=== PATIENT | female | born 1940 | race Caucasian/White ===

== ENCOUNTER 2017-01-25 04:55 | Inpatient (IN) | payer BC ==
[2017-01-19 16:26] LABS: BASOPHILS 0.2 %; BASOPHILS ABSOLUTE 0.01 10/3/uL (0.0-0.16); EOSINOPHILS 1.1 %; EOSINOPHILS ABSOLUTE 0.06 10/3/uL (0.0-0.53); HEMATOCRIT 36.5 % (36.0-48.0); HEMOGLOBIN 12.2 g/dL (12.0-16.0); LYMPHOCYTES ABSOLUTE 1.51 10/3/uL (0.67-4.30); MEAN CORPUS HGB CONC 33.4 g/dL (32.0-36.0); MEAN CORPUSCULAR HEMOGLOB 32.4 pg (26.0-34.0); MEAN CORPUSCULAR VOLUME 97.1 fL (80-100); MEAN PLATELET VOLUME 8.9 fL (9.2-13.0); MONOCYTES 5.5 %; MONOCYTES ABSOLUTE 0.31 10/3/uL (0.21-1.20); NEUTROPHILS 66.2 %; NEUTROPHILS ABSOLUTE 3.71 10/3/uL (2.02-8.40); PLATELET COUNT 202 10/3/uL (150-400); RBC DISTRIBUTION WIDTH 12.7 % (12.0-16.0); RED CELL COUNT 3.76 10/6/uL (4.0-5.6); WHITE BLOOD CELLS 5.6 10/3/uL (4.5-10.5)
[2017-01-19 16:27] LABS: MANUAL DIFF NO %
[2017-01-19 16:39] LABS: PROTIME (NOT ORD) 13.1 SEC (12.0-14.5)
[2017-01-19 16:42] LABS: BUN (BLOOD UREA NITROGEN) 20 MG/DL (6-23); CALCIUM, SERUM 8.7 MG/DL (8.5-10.4); CHLORIDE, SERUM 108 MMOL/L (96-112); CO2 (CARBON DIOXIDE) 30 MMOL/L (24-34); CREATININE 1.17 MG/DL (0.55-1.02); GFR AFRICAN AMERICAN 52 ML/MIN (>=60); GFR NON AFRICAN AMERICAN 45 ML/MIN (>=60); SODIUM, SERUM 145 MMOL/L (135-148)
[2017-01-19 16:43] LABS: GLUCOSE, SERUM 113 MG/DL (60-99)
[2017-01-19 16:44] LABS: ASCORBIC ACID (UR NOT ORDER) NEG (NEG); BILIRUBIN, URINE NEGATIVE (NEG); KETONE, URINE NEGATIVE (NEG); LEUKOCYTE ESTERASE(NOT OR TRACE (NEG); WBC (NOT ORDERED) (RFLEX) 2 (0-5)
--- NOTE | ~2017-01-25 | OP ---
Record Of Operation [facility] [address] [place]. [address] NAME: ROSE VIZCAINO : 36 STATUS : ADM IN PAT#: [id number] AGE: 76 ADM/REG DATE : 01/25/17 MR#: [id number] REPORT SERV DATE: 01/26/17 DICTATED BY: VIKASH BRUNNER DATE: 01/25/17 REPORT STATUS : Draft TRANSCRIBED BY: MODL DATE: 01/25/17 DATE OF PROCEDURE: 01/25/2017 SURGEON: Vikash Brunner MD OPERATIVE CLINICAL MATERIAL HANDLER: CRISTY Gomez COMPLICATIONS: None. ESTIMATED BLOOD LOSS: Less than 50 mL. DISPOSITION: Stable to recovery room. ANESTHESIA: General with interscalene block augmentation for postoperative pain control. PREOPERATIVE DIAGNOSES: 1. Right shoulder pain. 2. End-stage glenohumeral joint osteoarthritis. POSTOPERATIVE DIAGNOSIS: 1. Right shoulder pain. 2. End-stage glenohumeral joint osteoarthritis. OPERATIVE PROCEDURE: 1. Right shoulder examination under anesthesia. 2. Right total shoulder arthroplasty using Biomet comprehensive total shoulder system. IMPLANTS USED: A 4 mm medium glenoid component with Regenerex post, a 10 x 83 mm mini humeral stem, a 46 x 18 mm modular head with a B offset with a standard taper adapter. OPERATIVE PROCEDURE: The diagnoses listed above as well as the recommended surgical procedure and risks and benefits thereof were discussed in full detail with Rose Vizcaino and family on the morning of 01/25/2017. The patient and family asked appropriate questions which were answered to their satisfaction. An informed consent was signed, witnessed, and place in the chart. The right upper extremity was marked for confirmation and an interscalene block was placed by the anesthesia team with good success. The patient was then wheeled to the operative arena where general endotracheal anesthesia was administered. The patient was placed in the beachchair position with all nonoperative extremities and head well padded and secured for the duration of the case. The patient received pre-operative antibiotics. A surgical pause was performed confirming both the correct patient as well as the proper surgical site and procedure. All present were in agreement. All standard anatomical landmarks as well as deltopectoral incision site were demarcated using a sterile marking pin. A 10-blade was used to create an 8 cm curvilinear incision just lateral to the coracoid process and directed towards the lateral insertion of the deltoid. The soft tissues were dissected down sharply to expose the deltopectoral fascia. Record Of Operation [facility] [address] [place]. [id number] NAME: ROSE VIZCAINO : 38 STATUS : ADM IN PAT#: [id number] AGE: 76 ADM/REG DATE : 01/25/17 MR#: [id number] REPORT SERV DATE: 01/26/17 DICTATED BY: VIKASH BRUNNER DATE: 01/25/17 REPORT STATUS : Draft TRANSCRIBED BY: JESSIE DATE: 01/25/17 The cephalic vein and the fat stripe were identified. The vein was retracted medially using careful sharp dissection. Next, a [place] retractor was placed retracting the deltoid laterally and the pectoralis and coracobrachialis medially. The deltopectoral interval was the further exposed and the clavipectoral fascia was identified. Electrocautery was used to split the clavipectoral fascia exposing the anterior surface of the subscapularis. The lesser tuberosity was identified and the subscapularis was released 1 cm medial to the lesser tuberosity. The subscapularis was then tagged using Fiber Wire suture for later repair. The biceps tendon was then released and tagged as well for later tenodesis. The glenohumeral joint was then dislocated and the humeral head was brought out the operative wound very carefully. All osteophytes were then removed using a rongeur. Our starting awl was used with increasing sizes of diaphyseal reamers to obtain the best fit with excellent cortical chatter. The intramedullary cutting jig was then assembled and set with the appropriate version to meet the patient's normal anatomy. An oscillating saw was then used to make our proximal humeral cut. The proximal humeral portion of the head was then taken to the back table and measured and matched up with our trial implants. Next, the broaches were used in increasing sizes up to the size which fit most perfectly. The head protector was placed and the proximal humerus was retracted posteriorly and inferiorly out of the way of the glenoid. The labrum was then excised in full using electrocautery. All additional osteophytes and osteochondral loose bodies were removed. Next, the glenoid reamers were used to ream the glenoid down to a healthy bleeding bone surface. Our central peg hole was then drilled and our peg guide was used to drill the subsequent three peg holes. A coring drill was then used to core for the glenoid post. A trial glenoid was then placed and found to fit perfectly. Next, the cement was mixed and placed into the peg holes. A polyethylene glenoid was assembled with an appropriate post and tapped into place. An excellent scratch fit was obtained. Pulsatile lavage was used to irrigate this implant as well as the glenohumeral joint. The proximal humerus was again brought out the operative wound. Trial humeral head implants were then tested. The stem was implanted into the proximal humerus after copious irrigation with sterile saline. This was impacted into place. Our Versa Dial was set and then impacted on the back table with an excellent Mata-Taper fit. This was then placed into the proximal humeral stem component and impacted into place with excellent security. At this juncture, the glenohumeral joint was then reduced once again. The glenohumeral joint alignment was near anatomic. Irrigation was used under pulsatile lavage to irrigate out the operative wound as well as the implants. Bone holes had been predrilled through the lesser tuberosity and four #2 Fiber Wire sutures were passed through this region. These were then taken through the soft tissues laterally and then tied down to our previously placed subscapularis sutures. An excellent repair of the subscapularis was obtained back down to the lesser tuberosity with no instability whatsoever. The biceps tendon was then tenodesed. The rotator interval was then closed also with #2 Fiber Wire suture. This layer was then again washed out with pulsatile lavage and copious amounts of sterile normal saline. The deltopectoral interval was closed with 2-0 undyed Vicryl. 2-0 undyed Vicryl was used to close the subcutaneous layer and a running Monocryl was placed below the skin. Steri-Strips were applied. Sterile dressing was then secured with Medipore tape. The patient was placed in an Ultra-Sling for post-operative immobilization. The patient was then awakened from anesthesia without difficulty and transferred to the post-anesthesia care unit in stable condition where the postoperative examination was within normal limits understanding that Record Of Operation [facility] [address] [place] [id number] NAME: ROSE VIZCAINO : 36 STATUS : ADM IN PAT#: [id number] AGE: 76 ADM/REG DATE : 01/25/17 MR#: [id number] REPORT SERV DATE: 01/26/17 DICTATED BY: VIKASH BRUNNER. DATE: 01/25/17 REPORT STATUS : Draft TRANSCRIBED BY: MODL DATE: 01/25/17 the interscalene block was still in affect. A lengthy discussion was held with the patient's family detailing all operative findings as well as procedures performed with all questions answered to their satisfaction. CCS/JESSIE Vikash Brunner M.D. / [id number] CC: Vikash Brunner M.D.
[~2017-01-25 04:55] MED LIST: 8 HOUR650 MG PO; ADVIL PO; CALCIUM PO; INTEGRA PLUS C1 EACH PO; MAXIMUM D3 PO; NEXIUM20 M1 PO; P10 PO; PREV15 PO; PREV30 PO; PRILO PO; PRIN10 PO; T PO; ULTRAM50 PO; VIT D PO; [UNRECOGNIZED DRUG - REMARK] PO
[2017-01-26 04:50] LABS: CALCIUM, SERUM 8.7 MG/DL (8.5-10.4); CHLORIDE, SERUM 108 MMOL/L (96-112); CO2 (CARBON DIOXIDE) 28 MMOL/L (24-34); CREATININE 1.04 MG/DL (0.55-1.02); GFR AFRICAN AMERICAN 60 ML/MIN (>=60); GFR NON AFRICAN AMERICAN 51 ML/MIN (>=60); POTASSIUM, SERUM 4.2 MMOL/L (3.5-5.3); SODIUM, SERUM 143 MMOL/L (135-148)
[2017-01-26 04:55] LABS: HEMOGLOBIN 10.5 g/dL (12.0-16.0)
[2017-01-26 04:56] LABS: BUN (BLOOD UREA NITROGEN) 12 MG/DL (6-23); GLUCOSE, SERUM 141 MG/DL (60-99)
[2017-01-26 05:02] LABS: HEMATOCRIT 31.6 % (36.0-48.0)
== END 2017-01-26 12:46 | disposition home or self-care (01) | DRG 483 ==
LOC: SDC/OF 04:55 → PACU 10:07 → 3SO 10:56
PROVIDERS: Specialist
PROC: 0RRJ0JZ Replacement of Right Shoulder Joint with Synthetic Substitute, Open Approach (ICD-10-PCS; principal; 2017-01-25 06:30)
DX: M19.011 Primary osteoarthritis, right shoulder (principal); D64.9 Anemia, unspecified; K21.9 Gastro-esophageal reflux disease without esophagitis
CPT/HCPCS: 36415; 73030-RT; 80048; 81001; 85014; 85018; 85025; 85610; 86850; 86900; 86901; 87641; 88305; 88311; 93005; 97116-GP; 97161-GP; A9270-GY; C1776; J0690; J2250; J2370; J2405; J2710; J2795; J3010